=== PATIENT | female | born 1960 | race Caucasian/White ===

== ENCOUNTER → 2021-03-24 15:26 | Outpatient (CLI) | payer OTHER, SELFPAY ==
--- NOTE | ~2021-03-24 | XR_ITS ---
XR thoracic spine 2V DATE: 03/24/2021 16:00 INDICATION: Thoracic back pain TECHNIQUE: AP, lateral, swimmer views COMPARISON: None FINDINGS: There is diffuse osteopenia. There is mild dextro scoliosis of the thoracic spine. No fracture or dislocation or bone destruction. The thoracic pedicles are intact. No paraspinal soft tissue thickening. Aortic arch calcification. Bilateral pulmonary hyperinflation suggesting COPD. IMPRESSION: Diffuse osteopenia Mild thoracic dextroscoliosis Reviewed, dictated and finalized at location A.
--- NOTE | ~2021-03-24 | XR_ITS ---
XR_CERV2-3V_CR DATE: 03/24/2021 16:00 INDICATION: Neck pain TECHNIQUE: AP, open-mouth, lateral and swimmer views COMPARISON: None FINDINGS: C7 is not well demonstrated on the lateral view, resulting in C1 and C2 are normally aligned and the odontoid process is intact. There is 4 mm anterolisthesis at C4-5. There is 1 mm anterolisthesis and moderate degenerative disc disease at C5-6. There is moderately severe degenerative disc disease at C6-7. No fracture is detected. No prevertebral soft tissue swelling. IMPRESSION: Multilevel degenerative disc disease, most pronounced at C6-7 and C5-6 4 mm anterolisthesis at C4-5, 1 mm anterolisthesis at C5-6 Reviewed, dictated and finalized at Location A. Reviewed, dictated and finalized at location A. IMPRESSION: Multilevel degenerative disc disease, most pronounced at C6-7 and C 5-6 4 mm anterolisthesis at C4-5, 1 mm anterolisthesis at C5-6
--- NOTE | ~2021-03-24 | XR_ITS ---
XR lumbar spine 2-3V DATE: 03/24/2021 16:00 INDICATION: Back pain, right sacroiliac pain. TECHNIQUE: AP, lateral, coned lateral lumbosacral views COMPARISON: None FINDINGS: There is mild dextroscoliosis. There is diffuse osteopenia. No fracture or bone destruction or spondylolisthesis . The lumbar pedicles are intact. Lumbar and lumbosacral interspaces are relatively well preserved. The re is mild degenerative spurring of the lumbar spine. The sacroiliac joints are unremarkable. IMPRESSION: Diffuse osteopenia Mild dextro scoliosis Mild degenerative spurring of the lumbar spine Reviewed, dictated and finalized at location A.
--- NOTE | ~2021-03-24 | XR_ITS ---
XR pelvis 1-2V DATE: 03/24/2021 16:00 INDICATION: Right sacroiliac pain TECHNIQUE: Standing AP pelvis COMPARISON: None FINDINGS: There is diffuse osteopenia. The pubic symphysis and sacroiliac joints are intact. No pelvic fracture or bone destruction is detec tigre. Joint spaces are symmetric and relatively well preserved. No fracture or dislocation of either hip is noted. IMPRESSION: Osteopenia Reviewed, dictated and finalized at location A. IMPRESSION: Osteopenia
== END ==
PROVIDERS: PCP Internal Medicine; Visit Provider Chiropractor
DX: M85.88 Other specified disorders of bone density and structure, other site (principal); M41.9 Scoliosis, unspecified; M50.323 Other cervical disc degeneration at C6-C7 level
CPT/HCPCS: 72040; 72070; 72100; 72170

== ENCOUNTER 2024-11-30 08:45 | Emergency (ER) | payer MEDICARE, SELFPAY ==
--- NOTE | ~2024-11-30 | XR_ITS ---
EXAMINATION: XR knee RT 3V DATE: 11/30/2024 09:06 INDICATION: Right knee injury TECHNIQUE: Anteroposterior, sunrise, oblique and crosstable lateral views of the 8 knee were obtained COMPARISON: None. FINDINGS: Alignment is normal. No fracture. Joint spaces appear normal on nonweightbearing imaging with no ost eophytosis. No joint effusion/layering lipohemarthrosis. Soft tissues are unremarkable. IMPRESSION: 1. Negative right knee radiographs. Reviewed, dictated and finalized at location B.
[2024-11-30 08:45] VITALS: BP 122/74; PULSE 110; RESP 22; TEMP 36.7; O2SAT 95
--- OUTSIDE RECORDS SUMMARY | 2024-11-30 08:58 | XMS_ITS | Referral Summary ---
Author Organization [facility] Address [address] [place] [address] Care Team Providers Care Cyber Crime Investigator Name Role Phone Colt Archibald MD Primary Care Provider [phone] Ze Heard EMERGENCY PLANNING AND RESPONSE MANAGER Unavailable [phone] Allergies Active Allergy Reactions Criticality Noted Date Comments Alendronate Nausea only Low 12/09/2021 Tramadol Anaphylaxis High Medications DULoxetine DR (CYMBALTA) 60 mg capsuleIndicatio ns:Anxiety with Depression Take 60 mg by mouth every morning Active cyanocobalamin (Vitamin B-12) 1,000 mcg/mL injectionIndicat ions:Vitamin B12 Deficiency Inject 1,000 mcg into the muscle as instructed every 30 (thirty) days Active ascorbic acid (VITAMIN C) 500 mg tablet,chewable Take one tablet twice daily 60 tablet/chew tab 0 Active Additional Information Patient taking differently: 500 mg oral 2 times daily PRN, Take one tablet twice daily,Indications: supplement, Informant: Self, Reported on 09/03/2020 albuterol sulfate 90 mcg/actuation aerosol powdr breath activatedIndicat ions:Chronic Obstructive Pulmonary Disease Inhale 2 puffs every 4 (four) hours as needed Active HYDROcodone-acet aminophen (NORCO) 5-325 mg per tablet Take 1 tablet by mouth every 8 (eight) hours as needed for pain 0 Active rOPINIRole (REQUIP) 0.5 mg tabletIndication s:Restless Legs Syndrome Take 0.5 mg by mouth nightly as needed 0 Active Trelegy Ellipta 100-62.5-25 mcg inhalerIndicatio ns:Bronchospasm Prevention with COPD Inhale 1 puff every morning 0 Active ergocalciferol (VITAMIN D) 50,000 unit capsuleIndicatio ns:Vitamin D Deficiency Take 50,000 Units by mouth once a week On Wed 0 Active levothyroxine (SYNTHROID) 88 mcg tabletIndication s:hypothyroidism Take 88 mcg by mouth marinator before breakfast Active SUMAtriptan (IMITREX) 50 mg tablet Take 50 mg by mouth once as needed for migraine 0 Active calcium-magnesiu m-zinc tabletIndication s:for supplement Take 1 tablet by mouth every morning Active hydrOXYzine (ATARAX) 25 mg tablet TAKE 1 TABLET BY MOUTH TWICE A DAY NEEDED FOR ANXIETY 1 Active alendronate (FOSAMAX) 70 mg tablet TAKE 1 TABLET BY MOUTH ONE TIME PER WEEK 1 Active cyclobenzaprine (FLEXERIL) 5 mg tablet TAKE 1 TABLET BY MOUTH 3 TIMES DAILY FOR 14 DAYS. 1 Active calcium carb-mag ox-zinc sulf 333-133-5 mg tablet Take 1 tablet by mouth Active Active Problems Problem Noted Date Diagnosed Date Osteoporosis 01/15/2021 Closed fracture of right distal radius 1 Overview (09/02/2020): Added automatically from request for surgery [id number] Carpal tunnel syndrome on right 07/19/2020 Overview (07/19/2020): Added automatically from request for surgery [id number] Rotator cuff tear arthropathy of right shoulder 05/27/2020 Overview (05/27/2020): Added automatically from request for surgery [id number] Rotator cuff arthropathy of right shoulder 05/20 Carpal tunnel syndrome of right wrist 05/20/2020 Complete tear of left rotator cuff 10/02/2019 Overview (10/02/2019): Added automatically from request for surgery [id number] Impingement syndrome of left shoulder 10/02/2019 Overview (10/02/2019): Added automatically from request for surgery [id number] Biceps tendinitis of right upper extremity 10/01 Overview (10/02/2019): Added automatically from request for surgery [id number] Immunizations Immunization Administration Dates Next Due Influenza, Quadrivalent, Spl it, Preservative Free, Intramuscular 04/23/2020 Influenza, Trivalent, Preservative Free, Intramu scular 09/02/2019,05/02/2019 Moderna SARS-CoV-2 Monovalent Vaccination (12+ Y RS) 03/27/2021,02/27/2021 Pneumococcal Polysaccharide PPV23 06/06/2019 Social History Tobacco Use Types Packs/Day Years Used Date Smoking Tobacco: Former Cigarettes 1 43.8 1 976 - 06/06/2019 Smokeless Tobacco: Never Alcohol Use Standard Drinks/Week Comments Yes 2 (1 standard drink = 0.6 oz pur e alcohol) AUDIT-C Answer Date Recorded Q1: How often do you have a drink containing alc ohol? 2-3 times a week 03/03/2021 Q2: How many drinks containi ng alcohol do you have on a typical day when you are drinking? 3 or 4 03/03/2021 Q3: How often do you have si x or more drinks on one occasion? 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 Gender Identity Not on file Sexual Orientation Not on file Last Filed Vital Signs Vital Sign Reading Time Taken Comments Blood Pressure 82/59 03/06/2021 2:10 PM CDT Pulse 70 03/06/2021 2:10 PM CDT Temperature 36.5 C (97.7 F) 03/06/2021 12:43 PM CDT Respiratory Rate 14 03/06/2021 2:10 PM CDT Oxygen Saturation 95% 03/06/2021 2:10 PM CDT Inhaled Oxygen Concentration - - Weight 62.1 kg (137 lb) 05/22/2021 8:47 AM CDT Height 165.1 cm (5' 5 ) 05/22/2021 8:47 AM CDT Body Mass Index 22.8 05/22/2021 8:47 AM CDT Plan of Treatment Not on file Medical Devices Implanted Type Area Physician Support Coordinator Device Identifier Shelf Expiration Date Model / Serial / Lot Musculoskeletal Transplant [id number] 4-30mm Allograft Frozen Old45-20sz Wedge Graft Bone - [id number] - [id number] Implanted:Qty: 1 on 09/12/2020 by Jorge L Alonso MD at [facility] Bone Right: Wrist Musculoskeletal Transplant 01/16/2024 [id number] / [id number] / [employer] 70-0058 Acu-Loc Wale .054in Low Profile Wire Joystick Hole Lock - [id number] - [id number] Implanted:Qty: 1 on 03/06/2021 by Jorge L Alonso MD at [facility] Plate Right: Wrist [employer] 70-0058 / 000 / 000 [employer] Co-N2312 2.3mm 12mm Nontoggle Hexagonal Cortical Screw Bone Titanium - [id number] Implanted:Qty: 2 on 09/12/2020 by Jorge L Alonso MD at [facility] Right: Wrist [employer] CO-N2312 / / [employer] Co-T2316 2.3mm 16mm Lock Hexagonal Cortical Full Thread Screw Bone - [id number] Implanted:Qty: 2 on 09/12/2020 by Jorge L Alonso MD at [facility] Right: Wrist [employer] CO-T2316 / / [employer] 70-0335 Acu-Loc 2 Buttress Rim Radial Right Distal Dorsal Plate Bone - [id number] Implanted:Qty: 1 on 09/12/2020 by Jorge L Alonso MD at [facility] Right: Wrist [employer] 70-0335 / / [employer] Co-T2318 2.3mm 18mm Lock Hexagonal Cortical Full Thread Screw Bone - [id number] Implanted:Qty: 1 on 09/12/2020 by Jorge L Alonso MD at [facility] Right: Wrist [employer] CO-T2318 / / Biomet B[employer] In [employer] Box [employer] [id number] Lactosorb Od1.5 Mm L5 Mm Emergency; Color Coded; Resorbable; Hexa - [id number] Implanted:Qty: 1 on 09/12/2020 by Jorge L Alonso MD at [facility] Right: Wrist Obdulio [employer] 915-2316 / / [employer] Co-T2314 2.3mm 14mm Lock Hexagonal Cortical Full Thread Screw Bone - [id number] Implanted:Qty: 1 on 09/12/2020 by Jorge L Alonso MD at [facility] Right: Wrist [employer] CO-T2314 / / [employer] Co-N2316 2.3mm 16mm Nontoggle Hexagonal Cortical Screw Bone Titanium - [id number] Implanted:Qty: 1 on 09/26/2020 by Jorge L Alonso MD at [facility] Right: Wrist [employer] 09/26/2020 CO-N2316 / / [employer] 30-0258 3.5mm 14mm Hexalobe Screw Bone Titanium Nonsterile Small Fragment - [id number] Implanted:Qty: 1 on 03/06/2021 by Jorge L Alonso MD at [facility] Right: Radius [employer] 30-0258 / / [employer] Co-T2316 2.3mm 16mm Lock Hexagonal Cortical Full Thread Screw Bone - [id number] Implanted:Qty: 2 on 03/06/2021 by Jorge L Alonso MD at [facility] Right: Radius [employer] CO-T2316 / / [employer] Co-T2318 2.3mm 18mm Lock Hexagonal Cortical Full Thread Screw Bone - [id number] Implanted:Qty: 2 on 03/06/2021 by Jorge L Alonso MD at [facility] Right: Radius [employer] CO-T2318 / / [employer] [id number] 3.5mm 14mm Lock Hexalobe Screw Bone Titanium Nonsterile Small - [id number] Implanted:Qty: 1 on 03/06/2021 by Jorge L Alonso MD at [facility] Right: Radius [employer] [id number] / / [employer] [id number] 3.5mm 12mm Hexalobe Screw Bone Titanium Nonsterile Small Fragment - [id number] Implanted:Qty: 1 on 03/06/2021 by Jorge L Alonso MD at [facility] Right: Radius [employer] [id number] / / Explanted Type Area Physician Support Coordinator Device Identifier Shelf Expiration Date Model / Serial / Lot [employer] [id number] 3.5mm 12mm Hexalobe Screw Bone Titanium Nonsterile Small Fragment - [id number] Explanted:Qty: 1 on 03/06/2021 by Jorge L Alonso MD at [facility] Right: Radius [employer] [id number] / / [employer] 30-0258 3.5mm 14mm Hexalobe Screw Bone Titanium Nonsterile Small Fragment - [id number] Explanted:Qty: 1 on 03/06/2021 by Jorge L Alonso MD at [facility] Right: Radius [employer] 30-0258 / / [employer] [id number] 3.5mm 12mm Lock Hexalobe Head Screw Bone Nonsterile - [id number] Explanted:Qty: 1 on 03/06/2021 by Jorge L Alonso MD at [facility] Right: Radius [employer] [id number] / / [employer] Co-T2318 2.3mm 18mm Lock Hexagonal Cortical Full Thread Screw Bone - [id number] Explanted:Qty: 1 on 03/06/2021 by Jorge L Alonso MD at [facility] Right: Radius [employer] CO-T2318 / / Procedures Procedure Name Priority Date/Time Associated Diagnosis Comments COLONOSCOPY 04/13/2018 10:02 AM CDT from Last 3 Months or Most Recently Relevant to Health Maintenance Results * COLONOSCOPY (04/13/2018 10:02 AM CDT) Anatomical Region Laterality Modality Other Narrative Procedure Note Rosemary Guaman MD - 04/13/2018 10:02 AM CDT [facility] Patient Name: Kae Goodwin Procedure Date: 04/13/2018 10:02 AM Date of : 1960 Admit Type: Outpatient Age: 58 Gender: Female Attending MD: Rosemary Guaman MD Room: [facility] ENDOSCOPY ROOM 2 Note Status: Finalized Patient Profile: 58 WF, screening, no family h/o colon cancer, had episdoe of rectal pain that seems resolved now. Procedure: Colonoscopy Indications: Screening for colorectal malignant neoplasm, Last colonoscopy: 1999 Referring MD: Colt Archibald MD Providers: Rosemary Guaman MD Impression: - One 2 mm polyp in the ascending colon, removedwith a jumbo cold forceps. Resected and retrieved. - Internal hemorrhoids. Recommendation: - Await pathology results. - Repeat colonoscopy in 5 years for surveillance. Medicines: Monitored Anesthesia Care Complications: No immediate complications. Estimated Blood Loss: Estimated blood loss: none. Procedure: Pre-Anesthesia Assessment: - Prior to the procedure, a History and Physical was performed, and patient medications and allergieswere reviewed. The patient's tolerance of previous anesthesia was also reviewed. The risks and benefitsof the procedure and the sedation options and riskswere discussed with the patient. All questions were answered, and informed consent was obtained. Prior Anticoagulants: The patient has taken no previous anticoagulant or antiplatelet agents. ASA Grade Assessment: II - A patient with mild systemicdisease. After reviewing the risks and benefits, the patientwas deemed in satisfactory condition to undergo the procedure. The benefits, risks and alternatives of theprocedure and sedation were discussed and informed consent was obtained. All questions were answered. Please referto the signed informed consent document in the medical record. The scope was passed under direct vision.The Pediatric Colonoscope PCF-H190L [id number] was introduced through the anus and advanced to the the cecum, identified by appendiceal orifice andileocecal valve. The colonoscopy was performed without difficulty. The patient tolerated the procedurewell. The quality of the bowel preparation was adequate. Findings: The perianal and digital rectal examinations were normal. The cecum appeared normal. A 2 mm polyp was found in the ascending colon. The polyp was sessile. The polyp was removed with a jumbo cold forceps. Resection andretrieval were complete. Internal hemorrhoids were found during retroflexion. The hemorrhoids were small to medium-sized. Electronically signed by Rosemary Guaman M.D. Rosemary Guaman MD 04/13/2018 11:34:45 AM Number of Addenda: 0 Note Initiated On: 04/13/2018 10:02 AM Procedure Code(s): --- Professional --- 91749, Colonoscopy, flexible; with biopsy, single or multiple Diagnosis Code(s): --- Professional --- Z12.11, Encounter for screening for malignant neoplasm of colon K64.8, Other hemorrhoids D12.2, Benign neoplasm of ascending colon CPT copyright 2017 [employer]. All rights reserved. The codes documented in this report are preliminary and upon handicraft or hobby shop manager reviewmay be revised to meet current compliance requirements. Recognized by the [employer] for promoting quality in endoscopy Rosemary Guaman MD ENDOSCOPY PROCEDURES Final Result from Last 3 Months or Most Recently Relevant to Health Maintenance Insurance [facility] CHOICE PLUS CHOICE PLUS MEDICARE MEDICARE Advance Directives For more information, please contact: [phone] * Full Code (Latest Code Status on File) Date Activated Date Inactivated Comments 04/13/2018 9:12 AM 04/13/2018 2:14 PM Care Teams Cyber Crime Investigator Relationship Specialty Start Date End Date Colt Archibald MD [address] [place] [address] PCP - General 06/01/13 Ze Heard NP [address] [place] [address] [place] [address] Nurse Practitioner Nurse Practitioner 10/12/19
--- OUTSIDE RECORDS SUMMARY | 2024-11-30 08:58 | XMS_ITS | Encounter Summary ---
Author Organization [facility] Address [address] [place] [address] Phone Care Team Providers Care Center Rep Name Role Phone Colt Archibald MD Primary Care Provider [phone] Ze Heard COUNTER CLERK [employer] Unavailable [phone] Encounter Details Date Type Department Care Team (Latest Contact Info) Description 08/30/2020 Orders Only SHE[facility]ER [facility] HAND/WRIST Scanning, Provider Social History Tobacco Use Types Packs/Day Years Used Date Smoking Tobacco: Former Cigarettes Q uit: 06/06/2019 Smokeless Tobacco: Never Alcohol Use Standard Drinks/Week Comments Yes 2 (1 standard drink = 0.6 oz pur e alcohol) Socially Comments No Sex and Gender Information Value Date Recorded Sex Assigned at Not on file 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 Gender Identity Not on file Sexual Orientation Not on file documented as of this encounter Plan of Treatment Not on file documented as of this encounter Procedures Procedure Name Priority Date/Time Associated Diagnosis Comments SCAN - RADIOLOGY/IMAGING 08/30/2020 documented in this encounter Results * SCAN - RADIOLOGY/IMAGING (08/30/2020) Anatomical Region Laterality Modality Other us Provider Scanning Final Result documented in this encounter Visit Diagnoses Not on filedocumented in this encounter Care Teams Center Rep Relationship Specialty Start Date End Date Colt Archibald MD [address] [place] [address] PCP - General 06/01/13 Ze Heard NP [address] [place] [address] [address] [place] [address] Nurse Practitioner Nurse Practitioner 10/12/19 documented as of this encounter
--- OUTSIDE RECORDS SUMMARY | 2024-11-30 08:58 | XMS_ITS | Clinical Summary ---
Author Organization [facility] Address [address] [place] [address] Care Team Providers Care Truck Despatcher Name Role Phone Unavailable Primary Care Provider Unavailabl e Source Comments [facility],non-owned Affiliates and Associated Physician Practices is amultiple site organization consisting of ambulatory clinics and hospital sitesin [place], [place], [place] and [place]. This disclosure is being madepursuant to the Care Everywhere program and may not contain all information available regarding this patient. Last updated 18.[facility] Allergies Active Allergy Reactions Criticality Noted Date Comments Tramadol 09/05/2013 Medications * Be aware that medications may not be up to date on this document. Alwaysverify current medications with the patient. levothyroxine (TIROSINT) 125 MCG capsule Take 125 mcg by mouth daily before breakfast. Active hydrOXYzine hcl (ATARAX) 10 MG tablet Take 10 mg by mouth 4 times daily as needed. Active sertraline (ZOLOFT) 50 MG tablet Take 50 mg by mouth once daily. Active Calcium Carbonate Antacid (TUMS PO) Take by mouth. Activ e meloxicam (MOBIC) 15 MG tabletIndicati ons:Back pain Take 0.5-1 Tabs by mouth once daily. 4 Active acetaminophen (TYLENOL) 500 MG tabletIndicati ons:Back pain,Migraine Take 2 Tabs by mouth 3 times daily. Maximum allowable Acetaminophen amount = 4 Grams (4000 mg) / 24 hours. 4 Active Cholecalcifero l (VITAMIN D) 1000 UNITS capsuleIndicat ions:Cramp in limb Take 2 Caps by mouth once daily. 4 Active Magnesium Oxide 200 MG TABSIndication s:Cramp in limb Take 200 mg by mouth 2 times daily after meals. 60 Tab 6 4 Active Additional Information Patient not taking.Reported on 07/09/2015 hydrocodone-ac etaminophen (NORCO) 5-325 MG tablet Take 1 Tab by mouth every 4 hours as needed for Pain. Active gabapentin (NEURONTIN) 100 MG capsuleIndicat ions:Insomnia Take 1-2 Caps by mouth at bedtime. 60 Cap 6 4 Active Additional Information Patient not taking.Reported on 07/09/2015 traMADol (ULTRAM) 50 MG tabletIndicati ons:Fibromyalg ia Take 0.5-1 Tabs by mouth 3 times daily as needed for Pain. with over the counter Tylenol for daily pain 90 Tab 6 4 Active Additional Information Patient not taking.Reported on 07/09/2015 amitriptyline (ELAVIL) 25 MG tablet Take 25 mg by mouth once daily 5 5 Active pantoprazole EC (PROTONIX) 40 MG tablet Take 40 mg by mouth once daily Active NIFEdipine CR osmotic 24hr (PROCARDIA-XL) 30 MG tablet Take 30 mg by mouth once daily Active multivitamin daily (THERAGRAN) tablet Take 1 Tab by mouth daily with food Active cyanocobalamin (VITAMIN B-12) injection Inject 1,000 mcg into muscle every 30 days Active cyclobenzaprin e (FLEXERIL) 10 MG tablet 0 5 Active Active Problems Problem Noted Date Diagnosed Date Arm pain 09/17/2013 Overview (09/17/2013): Normal shoulder xray Mild multilevel DJD on Cspine Abdominal pain, RUQ (right upper quadrant) 09/17 Overview (09/17/2013): 09/17/2013 normal US abd Family History Medical History Relation Name Comments Arthritis - Osteo Father Hypertension Father Stroke Father Hypertension Mother Stroke Mother Arthritis - Osteo Sister 1 Migraine Sister 2 Relation Name Status Comments Brother drug use Father Mother (Age 35) CVA Sister 1 Sister 2 Social History Tobacco Use Types Packs/Day Years Used Date Smoking Tobacco: Some Days Cigarettes Smokeless Tobacco: Never Comments:E cig vapor & cigs Alcohol Use Standard Drinks/Week Comments Yes 0 (1 standard drink = 0.6 oz pur e alcohol) occ Comments Unknown Sex and Gender Information Value Date Recorded Sex Assigned at Not on file Legal Sex Female 1:10 PM REFUGE WORKER Gender Identity Not on file Sexual Orientation Not on file 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 Not on file Not on file Not on arnoldo e Last Filed Vital Signs Vital Sign Reading Time Taken Comments Blood Pressure 110/68 07/09/2015 11:00 AM REFUGE WORKER Pulse 84 06/18/2014 3:47 PM REFUGE WORKER Temperature - - Respiratory Rate - - Oxygen Saturation - - Inhaled Oxygen Concentration - - Weight 65.8 kg (145 lb) 07/09/2015 11:00 AM REFUGE WORKER Height 165.1 cm (5' 5 ) 07/09/2015 11:00 AM REFUGE WORKER Body Mass Index 24.13 07/09/2015 11:00 AM REFUGE WORKER Plan of Treatment Health Maintenance Due Date Last Done Comments COLOGUARD (AGES 45-75) - COL ON CA SCREENING 1960 COLON MONITORING 1960 COLONOSCOPY - COLON CA SCREENING 1960 CT COLONOGRAPHY - COLON CA SCREENING 1960 Colorectal Cancer Screening 1960 FIT - COLON CA SCREENING 1960 FLEX SIG - COLON CA SCREENING 1960 LIPID TESTING 1960 MAMMOGRAM 1960 HIV SCREENING 01/22/1975 HEPATITIS C SCREENING 01/18/1978 DTAP/TDAP/TD VACCINES (1 - Tdap) 01/22/1979 PNEUMOCOCCAL VACCINE 50+ (1 of 2 - PCV) 01/22/1979 ZOSTER VACCINE (1 of 2) 01/22/2010 COVID-19 VACCINE ( - 2023-2 5 season) 2024 DEPRESSION SCREENING 08/02/2024 INFLUENZA VACCINE (Season Ended) 2025 Respiratory Syncytial Virus (RSV) Vaccine Pt: or over 60 yrs (1 - 1-dose 75+ series) 01/22/2035 HEPATITIS B VACCINE Aged Out No longe r eligible based on patient's age to complete this topic HIB VACCINE Aged Out No longer eligi ble based on patient's age to complete this topic HPV VACCINE Aged Out No longer eligi ble based on patient's age to complete this topic MENINGOCOCCAL (Group B) VACC INE SHARED DECISION-MAKING Aged Out No longer eligibl e based on patient's age to complete this topic MENINGOCOCCAL GROUPS A/C/Y/W VACCINE Aged Out No longer eligible b ased on patient's age to complete this topic Insurance [facility]
--- OUTSIDE RECORDS SUMMARY | 2024-11-30 08:59 | XMS_ITS | Clinical Summary ---
Author Organization [facility] Address [address] [place] [address] Phone Care Team Providers Care Raisin Separator Operator Name Role Phone Colt Archibald MD Primary Care Provider [phone] Jase Mchugh MD Unavailable [phone] Allergies Active Allergy Reactions Criticality Noted Date Comments Alendronate Nausea 12/09/2021 Tramadol Swelling 02/09/2018 Medications calcium carbonate (TUMS) 250 MG Chewable Tablet Take by mouth. Activ e acetaminophen (TYLENOL) 500 MG Tablet Take by mouth. 4 Active Ascorbic Acid (Vitamin C) 500 MG Chewable Tablet Take one tablet twice daily 0 Active Cholecalcifero l (D 1000) 25 mcg Capsule Take by mouth. 4 Active Magnesium 200 MG Tablet 200 mg daily Active zinc gluconate 50 MG Tablet Take by mouth. Ac tive hydrOXYzine (ATARAX) 25 MG Tablet TAKE 1 TABLET BY MOUTH TWICE A DAY NEEDED FOR ANXIETY 30 Tablet 2 1 Active calcium-magnes ium-zinc 333-133-5 MG Tablet Take 1 Tablet by mouth. Active ergocalciferol (VITAMIN D) 60949 UNIT Capsule TAKE 1 CAPSULE BY MOUTH ONCE A WEEK. DOSE CHANGE 4 Capsule 5 1 Active cyanocobalamin (VITAMIN B-12) 1000 MCG/ML Solution 1,000 mcg by Intramuscular route Every 3 months. Active rOPINIRole (REQUIP) 0.5 MG Tablet Take 1 Tablet by mouth nightly. 90 Tablet 1 2 Active SUMAtriptan (IMITREX) 50 MG Tablet Take 1 tab at onset of headache.May repeat dose in 2 hours if headache persist. 9 Tablet 3 2 Active rosuvastatin (CRESTOR) 10 MG Tablet Take 1 Tablet by mouth nightly. 30 Tablet 3 3 Active busPIRone (BUSPAR) 5 MG Tablet Take 1 1/2 tab po bid prn for anxiety 42 Tablet 3 Active cyclobenzaprin e (FLEXERIL) 5 MG Tablet Take 1 Tablet by mouth every 6 hours as needed for Muscle spasms. 56 Tablet 1 3 Active levothyroxine (SYNTHROID) 100 MCG Tablet Take 1 Tablet by mouth daily. 90 Tablet 3 3 Active DULoxetine (CYMBALTA) [address] Particles Take 1 Capsule by mouth daily. 30 Capsule 2 3 Active tiotropium-olo daterol (STIOLTO RESPIMAT) 2.5-2.5 MCG/ACT Aerosol Solution take 2 Puffs by inhalation daily. 4 g 2 3 Active albuterol 108 (90 Base) MCG/ACT Aerosol Solution take 1-2 Puffs by inhalation every 4 hours as needed for Wheezing. 18 g 2 3 Active omeprazole (PriLOSEC) 20 MG CAPSULE DELAYED RELEASE Take 1 Capsule by mouth daily. 30 Capsule 3 3 Active Active Problems Problem Noted Date Diagnosed Date GERD without esophagitis 12/31/2022 Centrilobular emphysema 12/31/2022 Other hyperlipidemia 06/30/2022 Chronic pain of both shoulders 08/05/2021 Chronic pain of right wrist 08/05/2021 Osteoporosis 01/15/2021 Migraine without aura and wi thout status migrainosus, not intractable 10/24/2020 Generalized anxiety disorder 08/15/2020 Restless leg syndrome 08/15/2020 Fibromyalgia 05/22/2020 Vitamin B12 deficiency 04/23/2020 Chronic bilateral low back pain with right-sided sciatica 06/04/2019 Other specified hypothyroidism 06/04/2019 Lateral epicondylitis, left elbow 02/10/2018 Resolved Problems Problem Noted Date Diagnosed Date Resolved Date Panlobular emphysema 05/22/2020 023 Community acquired pneumonia 06/04/2019 08/15/2020 COPD exacerbation 06/04/2019 05/22/2020 Immunizations Immunization Administration Dates Next Due Covid-19, Mrna, Lnp-s, PF, 1 00 mcg/0.5 mL Dose (Moderna) 03/27/2021,02/27/2021 Influenza Vaccine 09/02/2019,05/02/2019 Influenza Vaccine, MDCK,quad rivalent, pres free 04/14/2023 Influenza Vaccine, Quadrivalent, PF 04/27/2022,0 08/05/2021,04/23/2020 Pneumococcal Vaccine Adult - 23 Valent 9 Pneumococcal conjugate PCV20 , polysaccharide [id number] conjugate, adjuvant, PF 03/04/2022 Zoster Vaccine Recombinant 01/28/2022 Family History Medical History Relation Name Comments Stroke Mother Relation Name Status Comments Brother Alive Father Mother Sister 1 Alive Sister 2 Alive Social History Tobacco Use Types Packs/Day Years Used Date Smoking Tobacco: Former Cigarettes Q uit: 06/23/2019 Smokeless Tobacco: Never Alcohol Use Standard Drinks/Week Comments Yes 2 (1 standard drink = 0.6 oz pur e alcohol) occasionally PHQ-2 Answer Date Recorded Total Score - Questions 1-9 0 04/03 Sexually Active Control Partners Comments Yes Comments No Sex and Gender Information Value Date Recorded Sex Assigned at Not on file Legal Sex Female 10:11 PM CDT Gender Identity Not on file Sexual Orientation Not on file Last Filed Vital Signs Vital Sign Reading Time Taken Comments Blood Pressure 110/72 09/17/2022 2:53 PM CAR SALES CONSULTANT Pulse 94 09/17/2022 2:53 PM CAR SALES CONSULTANT Temperature 36.4 C (97.6 F) 09/17/2022 2:53 PM CAR SALES CONSULTANT Respiratory Rate 16 04/27/2022 2:39 PM CDT Oxygen Saturation 97% 09/17/2022 2:53 PM CAR SALES CONSULTANT Inhaled Oxygen Concentration - - Weight 60.3 kg (133 lb) 09/17/2022 2:53 PM CAR SALES CONSULTANT Height 165.1 cm (5' 5 ) 09/17/2022 2:53 PM CAR SALES CONSULTANT Body Mass Index 22.13 09/17/2022 2:53 PM CAR SALES CONSULTANT Plan of Treatment Health Maintenance Due Date Last Done Comments Hepatitis C Virus (HCV) Screening 1960 TdaP Immunization 1960 Cologuard 01/22/2010 Immunochemical Fecal Occult Blood 01/22/2010 Respiratory Syncytial Virus (RSV) Immunization (Adult) (1 - Risk 60-74 years 1-dose series) 2020 Mammogram 02/26/2023 02/26/2022, 12/31, 02/20/2016 Influenza Immunization (#1) 04/02/202404/02, 04/27/2022, 08/05/2021, Additional history exists SARS-COV-2 Immunization ( season) 2024 03/27/2021, 02/27/2021 Colonoscopy 04/13/2028 04/13/2018 Colorectal Cancer Screening 04/13/2028 04/13/2018 Pneumococcal Immunization (50+ years) Completed 03/04/2022, 06/06/2019 Pneumococcal Immunization Combined Discontinued 03/04/2022, 06/06/2019 Zoster Immunization Completed 05/04/2022, Hepatitis B Immunization Aged Out No longer eligible based on patient's age to complete this topic Meningococcal Immunization (ACWY) Aged Out No longer eligible based on patient's age to complete this topic Rotavirus Immunization Aged Out No lo nger eligible based on patient's age to complete this topic Procedures Procedure Name Priority Date/Time Associated Diagnosis Comments IAN DIAG BILATERAL DIGITAL W CAD W ALINA Routine 02/26/2022 12:00 AM CDT Abnormal mammogram HM COLONOSCOPY Routine 04/13/2018 from Last 3 Months or Most Recently Relevant to Health Maintenance Results * IAN DIAG BILATERAL DIGITAL W CAD W ALINA (02/26/2022 12:00 AM CDT) Anatomical Region Laterality Modality breast Bilateral Mammography 02/26/2022 us Colt Archibald MD IMG MAMMO ORDERABLES Final Result * HM COLONOSCOPY (04/13/2018) us Colt Archibald MD PROCEDURE/MINOR SURGICAL OR DERABLES Final Result from Last 3 Months or Most Recently Relevant to Health Maintenance Insurance MEDICARE Advance Directives * Full Code (Latest Code Status on File) Date Activated Date Inactivated Comments 06/04/2019 2:33 PM 06/06/2019 5:49 PM CPR-Full Jong atment: FULL ARREST: Attempt Resuscitation/CPR wit intubation and mechanical ventilation. PRE-ARREST: Use entire range of life support measures to stabilize the patient. Care Teams Raisin Separator Operator Relationship Specialty Start Date End Date Colt Archibald MD [address] [place] [address] PCP - General Internal Medicine 06/14/15 Jase Mchugh MD [address] [place] [address] General Surgery 07/11/15
--- OUTSIDE RECORDS SUMMARY | 2024-11-30 08:59 | XMS_ITS | Continuity of Care Document ---
Author Organization [facility] Address [address] [place] [address] Phone Care Team Providers Care Aeronautical Inspector Name Role Phone Administrative, Provider Unavailable Unavail able Procedures Procedure Date Medical Record Copy Medical Record Copy Per Page Affidavit Medical Record Copy Medical Record Copy Per Page Affidavit Office/outpatient visit,est, mod 2005 Supplemental Report X-ray exam of shoulder, complete 2005 Advance Directives Directive Yes / No Effective Date File Name No Information Encounters Encounter Description Practice Location Reason(s) For Visit Diagnoses Date Provider Providers Copied on Encounter [facility], [address], [id number], [place] tel:[phone] [facility] No Information 7 Administrative Provider. [address], [place], [id number], [place]. tel:[phone] [facility], [address] [place] [address], [id number], [place] tel:[phone] [facility] No Information 3200 7 Administrative Provider. [address] [facility], [place], [id number], [place]. tel:[phone] Office/outpa tient visit,est, mod [facility], [address] [facility] [address], [place], [place], [id number], [place] tel:[phone] [facility] No Information 6[address] 6 Abigail Waldrop. [address] [facility], [address], [place], [place], [id number], [place]. tel:[phone] Family History Family Member Type Diagnosis Age At Onset No Information Payers Payer name Insurance type Covered democrat ID Authoriza tion(s) No Information Social History Type Description Quantity Date Captured Comments Sex Female Smoking Status No Information Chief Complaint And Reason For Visit No Information Reason For Referral Reason For Referral No Information History Of Present Illness Encounter Date Complaint History Of Prese nt Illness No Information Functional Status Date Functional Assessmen t No Information Instructions Date Instruction Additional Infor mation No Information Assessments Type Assessment Date No Information Patient Care Teams Name Effective Dates (start - stop) Status Members No Information
--- OUTSIDE RECORDS SUMMARY | 2024-11-30 08:59 | XMS_ITS | Clinical Summary ---
Author Organization [facility] Address [address] [place] [address] Care Team Providers Care Real Estate Coordinator Name Role Phone Colt Archibald MD Primary Care Provider [phone] eZ Heard ORNAMENT MAKER HAND Unavailable [phone] Allergies Active Allergy Reactions Criticality Noted Date [...] tabletIndication s:hypothyroidism Take 88 mcg by mouth electric power line repairer before breakfast Active SUMAtriptan (IMITREX) 50 mg [...] (09/02/2020): Added automatically from request for surgery [id number] Carpal tunnel syndrome on right 07/19/2020 Overview (07/19/2020): Added automatically from request for surgery [id number] Rotator cuff tear arthropathy of right shoulder 05/27/2020 Overview (05/27/2020): Added automatically from request for surgery [id number] Rotator cuff arthropathy of right shoulder 05/20 Carpal tunnel syndrome of right wrist 05/20/2020 Complete tear of left rotator cuff 10/02/2019 Overview (10/02/2019): Added automatically from request for surgery [id number] Impingement syndrome of left shoulder 10/02/2019 Overview (10/02/2019): Added automatically from request for surgery [id number] Biceps tendinitis of right upper extremity 10/01 Overview (10/02/2019): Added automatically from request for surgery [id number] Immunizations Immunization Administration Dates Next Due Influenza, Quadrivalent, Spl it, Preservative Free, Intramuscular 04/23/2020 Influenza, Trivalent, Preservative Free, Intramu scular 09/02/2019,05/02/2019 Moderna SARS-CoV-2 Monovalent Vaccination (12+ Y RS) 03/27/2021,02/27/2021 Pneumococcal Polysaccharide PPV23 06/06/2019 Surgical History Surgery Date Site/Laterality Comments SHOULDER SURGERY , 2002 Bilateral bilateral shoulder surgery COLONOSCOPY 18+ years ago does not remember location HYSTERECTOMY 08/02/1996 - 08/01/1997 SHOULDER SURGERY 08/02/2002 - 08/01/2003 CARPAL TUNNEL RELEASE 08/01/2020 Right TONSILLECTOMY 08/02/1965 - 08/01/1966 Medical History Medical History Date Comments Hx Other Medical chronic fatigue ; improved 10/06/2019 Headache headaches; impro reji 10/06/2019 Hx Other Medical shingles Hx Other Medical Headache, migra ine Anxiety disorder Anxiety; improv ed 10/06/2019 Depression Depression Hx Other Medical back pain Hx Other Medical 2005 right shouler Hx Other Medical 2010 right shoulder surgery Hx Other Medical 2011 left shoulder s urgery Hx Other Medical 2011 2 hernia disk i n neck Disorder of thyroid Thyroid dise ase COPD (chronic obstructive pu lmonary disease) (HCC) Requires supplemental oxygen At night 2.5L/NC Hypothyroidism On home oxygen therapy 2.5L at s lee Family History Medical History Relation Name Comments Heart disease Other 1 Family history of Heart disease; Seizures Other 2 Family history of Seizure disorder; Stroke Other 3 Family history of Stroke; Anesthesia problems Neg Hx Relation Name Status Comments Other 1 Other 2 Other 3 Social History Tobacco Use Types Packs/Day Years [...] on file Legal Sex Female 6:11 PM CLINICAL EDUCATOR Gender Identity Not on file Sexual Orientation Not on file Obstetrics History Last Filed Vital Signs Vital Sign Reading [...] 05/22/2021 8:47 AM CDT Plan of Treatment Health Maintenance Due Date Last Done Comments Depression Screening 1960 Hepatitis C Screening 1960 DTaP/Tdap/Td Vaccine (1 - Tdap) 01/22/1971 Hepatitis B Screening 01/22/1978 Regular Well Visit/Exam 18-64 01/22/1978 Zoster Vaccine (1 of 2) 01/22/2010 Breast Cancer Screening-Mammogram 01/13/2022 01/13/2021 Covid-19 Vaccine ( season) 2024 03/27/2021, 02/27/2021 Influenza Vaccine (#1) 2024 2, 04/23/2020, 09/02/2019, Additional history exists Colon Cancer Screening-Colonoscopy 04/13/2028 04/13/2018 Colon Cancer Screening-CT Colonography Discontinued 04/13/2018 Colon Cancer Screening-DNA Stool Discontinued 04/13/2018 Colon Cancer Screening-FIT Discontinued 04/13/2018 Colon Cancer Screening-Sigmoidoscopy Discontinued 04/13/2018 Pneumococcal vaccine <65 Aged Out 06/06/2019 No longer eligible based on patient's age to complete this topic Medical Devices Implanted Type Area Animal Services Officer Device Identifier Shelf Expiration Date Model / Serial / Lot Musculoskeletal Transplant [id number] 4-30mm Allograft Frozen [id number] Wedge Graft Bone - [id number] - [id number] Implanted:Qty: 1 on 09/12/2020 by Jorge L Alonso MD at [facility] Bone Right: Wrist Musculoskeletal Transplant 01/16/2024 [id number] / [id number] / [employer] 70-0058 Acu-Loc Wale .054in Low Profile Wire Joystick Hole Lock - [id number] - [id number] Implanted:Qty: 1 on 03/06/2021 by Jorge L Alonso MD at [facility] Plate Right: Wrist [employer] 70-0058 / 000 / 000 [employer] Co-N2312 2.3mm 12mm Nontoggle Hexagonal Cortical Screw Bone Titanium - [id number] Implanted:Qty: 2 on 09/12/2020 by Jorge L Alonso MD at [facility] Right: Wrist [employer] CO-N2312 / / [employer] Co-T2316 2.3mm 16mm Lock Hexagonal Cortical Full Thread Screw Bone - [id number] Implanted:Qty: 2 on 09/12/2020 by Jorge L Alonso MD at [facility] Right: Wrist [employer] CO-T2316 / / [employer] 70-0335 Acu-Loc 2 Buttress Rim Radial Right Distal Dorsal Plate Bone - [id number] Implanted:Qty: 1 on 09/12/2020 by Jorge L Alonso MD at [facility] Right: Wrist [employer] 70-0335 / / [employer] Co-T2318 2.3mm 18mm Lock Hexagonal Cortical Full Thread Screw Bone - [id number] Implanted:Qty: 1 on 09/12/2020 by Jorge L Alonso MD at [facility] Right: Wrist [employer] CO-T2318 / / Biomet [employer] [id number] Lactosorb Od1.5 Mm L5 Mm Emergency; Color Coded; Resorbable; Hexa - [id number] Implanted:Qty: 1 on 09/12/2020 by Jorge L Alonso MD at [facility] Right: Wrist Obdulio [employer] 915-2316 / / [employer] Co-T2314 2.3mm 14mm Lock Hexagonal Cortical Full Thread Screw Bone - [id number] Implanted:Qty: 1 on 09/12/2020 by Jorge L Alonso MD at [facility] Right: Wrist [employer] CO-T2314 / / [employer] Co-N2316 2.3mm 16mm Nontoggle Hexagonal Cortical Screw Bone Titanium - [id number] Implanted:Qty: 1 on 09/26/2020 by Jorge L Alonso MD at [facility] Right: Wrist [employer] 09/26/2020 CO-N2316 / / [employer] 30-0258 3.5mm 14mm Hexalobe Screw Bone Titanium Nonsterile Small Fragment - [id number] Implanted:Qty: 1 on 03/06/2021 by Jorge L Alonso MD at [facility] Right: Radius [employer] 30-0258 / / [employer] Co-T2316 2.3mm 16mm Lock Hexagonal Cortical Full Thread Screw Bone - [id number] Implanted:Qty: 2 on 03/06/2021 by Jorge L Alonso MD at [facility] Right: Radius [employer] CO-T2316 / / [employer] Co-T2318 2.3mm 18mm Lock Hexagonal Cortical Full Thread Screw Bone - [id number] Implanted:Qty: 2 on 03/06/2021 by Jorge L Alonso MD at [facility] Right: Radius [employer] CO-T2318 / / [employer] [id number] 3.5mm 14mm Lock Hexalobe Screw Bone Titanium Nonsterile Small - [id number] Implanted:Qty: 1 on 03/06/2021 by Jorge L Alonso MD at [facility] Right: Radius [employer] [id number] / / [employer] [id number] 3.5mm 12mm Hexalobe Screw Bone Titanium Nonsterile Small Fragment - [id number] Implanted:Qty: 1 on 03/06/2021 by Jorge L Alonso MD at [facility] Right: Radius [employer] [id number] / / Explanted Type Area Animal Services Officer Device Identifier Shelf Expiration Date Model / Serial / Lot [employer] Inc [id number] 3.5mm 12mm Hexalobe Screw Bone Titanium Nonsterile Small Fragment - [id number] Explanted:Qty: 1 on 03/06/2021 by Jorge L Alonso MD at [facility] Right: Radius [employer] [id number] / / [employer] 30-0258 3.5mm 14mm Hexalobe Screw Bone Titanium Nonsterile Small Fragment - [id number] Explanted:Qty: 1 on 03/06/2021 by Jorge L Alonso MD at [facility] Right: Radius [employer] 30-0258 / / [employer] 073231 3.5mm 12mm Lock Hexalobe Head Screw Bone Nonsterile - [id number] Explanted:Qty: 1 on 03/06/2021 by Jorge L Alonso MD at [facility] Right: Radius [employer] [id number] / / [employer] Co-T2318 2.3mm 18mm Lock Hexagonal Cortical Full Thread Screw Bone - [id number] Explanted:Qty: 1 on 03/06/2021 by Jorge L Alonso MD at [facility] Right: Radius [employer] CO-T2318 / / Procedures Procedure Name Priority Date/Time Associated Diagnosis Comments COLONOSCOPY 04/13/2018 10:02 AM CDT from Last 3 Months or Most Recently Relevant to Health Maintenance Results * COLONOSCOPY (04/13/2018 10:02 AM CDT) Anatomical Region Laterality Modality Other Narrative Procedure Note Rosemary Guaman MD - 04/13/2018 10:02 AM CDT [facility] Patient Name: Kae Goodwin Procedure Date: 04/13/2018 10:02 AM Date of : 1960 Admit Type: Outpatient Age: 58 Gender: Female Attending MD: Rosemary Guaman MD Room: COUNTS INCLUDE 234 BEDS AT THE [facility] ENDOSCOPY ROOM 2 Note Status: Finalized Patient [...] passed under direct vision.The Pediatric Colonoscope PCF-H190L [id number] was introduced through the anus and advanced [...] 10:02 AM Procedure Code(s): --- Professional --- 47543, Colonoscopy, flexible; with biopsy, single or multiple Diagnosis Code(s): --- Professional --- Z12.11, Encounter for screening for malignant neoplasm of colon K64.8, Other hemorrhoids D12.2, Benign neoplasm of ascending colon CPT copyright 2017 [employer]. All rights reserved. The codes documented in this report are preliminary and upon carton marker machine reviewmay be revised to meet current compliance requirements. Recognized by the [employer] for promoting quality in endoscopy Rosemary Guaman MD ENDOSCOPY PROCEDURES Final Result from Last 3 Months or Most Recently Relevant to Health Maintenance Insurance [facility] [employer] HMO/PPO Address: [address] [address] [place] [id number] [facility] H[facility]/PPO Address: [address] [place] [address] MEDICARE MEDICARE Advance Directives For more information, please contact: [phone] * Full Code (Latest Code Status on File) Date Activated Date Inactivated Comments 04/13/2018 9:12 AM 04/13/2018 2:14 PM Care Teams Real Estate Coordinator Relationship Specialty Start Date End Date Colt Archibald MD [address] [place] [address] PCP - General 06/01/13 Ze Heard NP [address] [place] [address] [address] MALLORY [address] [place] [address] [address] Nurse Practitioner Nurse Practitioner 10/12/19
--- OUTSIDE RECORDS SUMMARY | 2024-11-30 08:59 | XMS_ITS | Encounter Summary ---
Author Organization [facility] Address [address] [place] [address] Phone Care Team Providers Care Java Application Developer Name Role Phone Colt Archibald MD Primary Care Provider Jase Mchugh MD Unavailable [phone] Reason for Visit * Reason Comments Medication Refill Encounter Details Date Type Department Care Team (Late st Contact Info) Description 08/17/2020 Refill [facility] - Internal Medicine - [place] [address] [place] [address] Colt Archibald MD [address] [place] [address] Medication Refill Social History Tobacco Use Types Packs/Day Years Used Date Smoking Tobacco: Former Cigarettes Q uit: 06/23/2019 Smokeless Tobacco: Never Alcohol Use Standard Drinks/Week Comments Yes 2 (1 standard drink = 0.6 oz pur e alcohol) occasionally PHQ-2 Answer Date Recorded Total Score - Questions 1-9 1 04/03 Comments No Sex and Gender Information Value Date Recorded Sex Assigned at Not on file Legal Sex Female 10:11 PM CDT Gender Identity Not on file Sexual Orientation Not on file COVID-19 Exposure Response Date Recorded In the last month, have you been in contact with someone who was confirmed or suspected to have Coronavirus / COVID-19? No / Unsure 08/15/2020 3:39 PM ASSISTANCE REPRESENTATIVE documented as of this encounter Miscellaneous Notes * Telephone Encounter - Elenita Arambula RN - 08/19/2020 8:07 AM CST Please review and sign. STANCE REPRESENTATIVE documented in this encounter Plan of Treatment Not on file documented as of this encounter Visit Diagnoses Not on filedocumented in this encounter Additional Health Concerns Assessment Noted Time PHQ-9 Depression Total Score: 1 04/23/20 20 3:00 PM CDT documented as of this encounter Care Teams Java Application Developer Relationship Specialty Start Date End Date Colt Archibald MD [address] [place] [address] PCP - General Internal Medicine 06/14/15 Jase Mchugh MD [address] [place] [address] General Surgery 07/11/15 documented as of this encounter
--- OUTSIDE RECORDS SUMMARY | 2024-11-30 08:59 | XMS_ITS | Encounter Summary ---
Author Organization [facility] Address [address] [place] [address] Care Team Providers Care Vending Technician Name Role Phone Colt Archibald MD Primary Care Provider [phone] Ze Heard BALL WORKER Unavailable [phone] Encounter Details Date Type Department Care Team (Late st Contact Info) Description 05/14/2020 Telephone [facility] [address] [place] [id number] Vanessa Gardner, Social History Tobacco Use Types Packs/Day Years Used Date Smoking Tobacco: Former Cigarettes Q uit: 06/06/2019 Smokeless Tobacco: Never Alcohol Use Standard Drinks/Week Comments Yes 0 (1 standard drink = 0.6 oz pur e alcohol) Socially Comments No Sex and Gender Information Value Date Recorded Sex Assigned at Not on file Legal Sex Female 6:11 PM CARDIOVASCULAR DISEASE SPECIALIST Gender Identity Not on file Sexual Orientation Not on file documented as of this encounter Plan of Treatment Not on file documented as of this encounter Visit Diagnoses Not on filedocumented in this encounter Care Teams Vending Technician Relationship Specialty Start Date End Date Colt Archibald MD [address] [place] [address] PCP - General 06/01/13 Ze Heard NP [address] [place] [address] [facility] [address] [place] [address] Nurse Practitioner Nurse Practitioner 10/12/19 documented as of this encounter
--- OUTSIDE RECORDS SUMMARY | 2024-11-30 08:59 | XMS_ITS | Encounter Summary ---
Author Organization [facility] Address [address] [place] [address] Phone Care Team Providers Care Aerospace Mechanic Name Role Phone Colt Archibald MD Primary Care Provider Jase Mchugh MD Unavailable [phone] Reason for Visit * Reason Comments Medication Refill Encounter Details Date Type Department Care Team (Late st Contact Info) Description 11/02/2020 Refill [facility] - Internal Medicine - [place] [address] [place] [address] Colt Archibald MD [address] [place] [address] Medication Refill Social History Tobacco Use Types Packs/Day Years Used Date Smoking Tobacco: Former Cigarettes Q uit: 06/23/2019 Smokeless Tobacco: Never Alcohol Use Standard Drinks/Week Comments Yes 2 (1 standard drink = 0.6 oz pur e alcohol) occasionally PHQ-2 Answer Date Recorded Total Score - Questions 1-9 1 04/03 Sexually Active Control Partners Comments Yes [...] have Coronavirus / COVID-19? No / Unsure 10/24/2020 2:31 PM CDT documented as of this encounter Plan of Treatment Not on file documented as of this encounter Visit Diagnoses Not on filedocumented in this encounter Additional Health Concerns Assessment Noted Time PHQ-9 Depression Total Score: 1 04/23/20 20 3:00 PM CDT documented as of this encounter Care Teams Aerospace Mechanic Relationship Specialty Start Date End Date Colt Archibald MD [address] [place] [address] PCP - General Internal Medicine 06/14/15 Jase Mchugh MD [address] [place] [address] General Surgery 07/11/15 documented as of this encounter
[2024-11-30 09:00] VITALS: BP 107/76; PULSE 107; RESP 17; O2SAT 95
--- NOTE | 2024-11-30 09:11 | ED.LOWEXIN ---
HPI - Extremity Injury (Lower) General Chief Complaint: Extremity Injury, Lower Stated Complaint: fall; right knee pain Time Seen by Provider: 11/30/24 08:55 Source: patient Mode of arrival: wheelchair Limitations: physical limitation History of Present Illness HPI Narrative: this is a 64-year-old female with history of COPD presents with some right knee pain after she fell yesterday injuring her right knee, there is pain located at the anterior surface of her right knee with minimal swelling with tenderness with palpation and movement. No other injuries noted no fever chills no nausea vomiting no shortness of breath no chest pain. complaint: knee injury Onset (ago): day(s) Injury: Right: knee ( tender with palpation and movement) Type of Injury: blunt Place: home Severity: moderate Severity scale (1-10): 6 Relieving factors: nothing Exacerbating factors: movement Context: fall Related Data Allergies Allergy/AdvReac Type Severity Reaction Status Date / Time tramadol Allergy Unknown TONGUE Verified 11/30/24 08:55 SWELLING Review of Systems Review of Systems: All systems reviewed & are unremarkable except as noted in HPI and below PMFSH Past Medical History Medical History COPD (chronic obstructive pulmonary disease) Exam Const: General: healthy appearing, no acute distress and alert Nutritional Appearance: well nourished and thin Limitations: no limitations Neck: Neck: normal visual inspection and no lymphadenopathy Chest: Chest palpation & inspection: normal inspection of the chest Resp: Effort & Inspection: normal respiratory effort Auscultation: clear to auscultation bilaterally Cardio: Rate: regular rate Rhythm: regular rhythm GI: GI Palp: Yes Soft to palpation Auscultation: normal bowel sounds Skin: General skin exam: normal color Rashes: no rashes Wounds: no wounds Neuro: General: patient oriented x3, moves all extremities, no meningeal signs and no focal motor deficits Extrem: Other: tender anterior right knee with palpation and movement Course Course Emergency Course: patient with right knee injury x-ray performed reviewed. Patient received 30mg IM Toradol. Critical Care Time Critical Care Time Critical Care Time: No Discharge Plan Discharge Clinical Impression: Strain of knee and leg, right Patient Disposition: Home Condition: Stable Instructions: Antibiotic Form, Knee Sprain (ED) Additional Instructions: advised to take Tylenol Motrin as needed and follow with primary care physician if symptoms persist or worsen. Patient Language: [place] Islander Follow-up/Referrals: Melva,Juan Mcqueen MD [Primary Care Provider] - Time of Disposition: 10:01
[2024-11-30] MEDS: KETOROLAC 30 MG/ML VIAL (*BKC) IM (09:15)
[2024-11-30 09:30] VITALS: BP 135/68; PULSE 99; RESP 17; O2SAT 96
--- OUTSIDE RECORDS SUMMARY | 2024-11-30 09:36 | XMS_ITS | Referral Summary ---
Author Organization [facility] Address [address] [place] [address] Care Team Providers Care Review Trainer Name Role Phone Colt Archibald MD Primary Care Provider [phone] Ze Heard SILVERWARE ASSEMBLER Unavailable [phone] Allergies Active Allergy Reactions Criticality Noted Date [...] tabletIndication s:hypothyroidism Take 88 mcg by mouth college counselor before breakfast Active SUMAtriptan (IMITREX) 50 mg [...] (09/02/2020): Added automatically from request for surgery [id number] Carpal tunnel syndrome on right 07/19/2020 Overview (07/19/2020): Added automatically from request for surgery [id number] Rotator cuff tear arthropathy of right shoulder 05/27/2020 Overview (05/27/2020): Added automatically from request for surgery [id number] Rotator cuff arthropathy of right shoulder 05/20 Carpal tunnel syndrome of right wrist 05/20/2020 Complete tear of left rotator cuff 10/02/2019 Overview (10/02/2019): Added automatically from request for surgery [id number] Impingement syndrome of left shoulder 10/02/2019 Overview (10/02/2019): Added automatically from request for surgery [id number] Biceps tendinitis of right upper extremity 10/01 Overview (10/02/2019): Added automatically from request for surgery [id number] Immunizations Immunization Administration Dates Next Due Influenza, [...] on file Legal Sex Female 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 Gender Identity Not on file Sexual [...] on file Medical Devices Implanted Type Area Tipple Boss Device Identifier Shelf Expiration Date Model / Serial / Lot Musculoskeletal Transplant [id number] 4-30mm Allograft Frozen [id number] Wedge Graft Bone - [id number] - [id number] Implanted:Qty: 1 on 09/12/2020 by Jorge L Alonso MD at [facility] Bone Right: Wrist Musculoskeletal Transplant 01/16/2024 [id number] / [id number] / [employer] 70-0058 Acu-Loc Wale .054in Low Profile Wire Joystick Hole Lock - S000 - [id number] Implanted:Qty: 1 on 03/06/2021 by Jorge L Alonso MD at [facility] Plate Right: Wrist [employer] 70-0058 / 000 / 000 [employer] Co-N2312 2.3mm 12mm Nontoggle Hexagonal Cortical Screw Bone Titanium - [id number] Implanted:Qty: 2 on 09/12/2020 by Jorge L Alonso MD at [facility] Right: Wrist [employer] CO-N2312 / / [employer] Co-T2316 2.3mm 16mm Lock Hexagonal Cortical Full Thread Screw Bone - [id number] Implanted:Qty: 2 on 09/12/2020 by Jorge L Alonso MD at [facility] Right: Wrist [employer] CO-T2316 / / [employer] 70-0335 Acu-Loc 2 Buttress Rim Radial Right Distal Dorsal Plate Bone - [id number] Implanted:Qty: 1 on 09/12/2020 by Jroge L Alonso MD at [facility] Right: Wrist [employer] 70-0335 / / [employer] Co-T2318 2.3mm 18mm Lock Hexagonal Cortical Full Thread Screw Bone - [id number] Implanted:Qty: 1 on 09/12/2020 by Jorge L Alonso MD at [facility] Right: Wrist [employer] CO-T2318 / / Biomet psicofxpixation Inc [id number] Lactosorb Od1.5 Mm L5 Mm Emergency; Color Coded; Resorbable; Hexa - [id number] Implanted:Qty: 1 on 09/12/2020 by Jorge L Alonso MD at [facility] Right: Wrist Obdulio [employer] 915-2316 / / [employer] Co-T2314 2.3mm 14mm Lock Hexagonal Cortical Full Thread Screw Bone - [id number] Implanted:Qty: 1 on 09/12/2020 by Jorge L Alonso MD at [facility] Right: Wrist [employer] CO-T2314 / / [employer] Co-N2316 2.3mm 16mm Nontoggle Hexagonal Cortical Screw Bone Titanium - [id number] Implanted:Qty: 1 on 09/26/2020 by Jorge L Alonso MD at [facility] Right: Wrist [employer] 09/26/2020 CO-N2316 / / [employer] 30-0258 3.5mm 14mm Hexalobe Screw Bone Titanium Nonsterile Small Fragment - [id number] Implanted:Qty: 1 on 03/06/2021 by Jorge L Alonso MD at [facility] Right: Radius [employer] 30-0258 / / [employer] Co-T2316 2.3mm 16mm Lock Hexagonal Cortical Full Thread Screw Bone - [id number] Implanted:Qty: 2 on 03/06/2021 by Jorge L Alonso MD at [facility] Right: Radius [employer] CO-T2316 / / [employer] Co-T2318 2.3mm 18mm Lock Hexagonal Cortical Full Thread Screw Bone - [id number] Implanted:Qty: 2 on 03/06/2021 by Jorge L Alonso MD at [facility] Right: Radius [employer] CO-T2318 / / [employer] [id number] 3.5mm 14mm Lock Hexalobe Screw Bone Titanium Nonsterile Small - [id number] Implanted:Qty: 1 on 03/06/2021 by Jorge L Alonso MD at [facility] Right: Radius [employer] [id number] / / [employer] [id number] 3.5mm 12mm Hexalobe Screw Bone Titanium Nonsterile Small Fragment - [id number] Implanted:Qty: 1 on 03/06/2021 by Jorge L Alonso MD at [facility] Right: Radius [employer] [id number] / / Explanted Type Area Tipple Boss Device Identifier Shelf Expiration Date Model / Serial / Lot [employer] Inc [id number] 3.5mm 12mm Hexalobe Screw Bone Titanium Nonsterile Small Fragment - [id number] Explanted:Qty: 1 on 03/06/2021 by Jorge L Alonso MD at [facility] Right: Radius [employer] [id number] / / [employer] 30-0258 3.5mm 14mm Hexalobe Screw Bone Titanium Nonsterile Small Fragment - [id number] Explanted:Qty: 1 on 03/06/2021 by Jorge L Alonso MD at [facility] Right: Radius [employer] 30-0258 / / [employer] [id number] 3.5mm 12mm Lock Hexalobe Head Screw Bone Nonsterile - [id number] Explanted:Qty: 1 on 03/06/2021 by Jorge L Alonso MD at [facility] Right: Radius [employer] [id number] / / [employer] Co-T2318 2.3mm 18mm Lock Hexagonal Cortical Full Thread Screw Bone - [id number] Explanted:Qty: 1 on 03/06/2021 by oJrge L Alonso MD at [facility] Right: Radius [employer] CO-T2318 / / Procedures Procedure Name Priority Date/Time Associated Diagnosis Comments COLONOSCOPY 04/13/2018 10:02 AM CDT from Last 3 Months or Most Recently Relevant to Health Maintenance Results * COLONOSCOPY (04/13/2018 10:02 AM CDT) Anatomical Region Laterality Modality Other Narrative Procedure Note Rosemary Guaman MD - 04/13/2018 10:02 AM CDT [facility] Patient Name: Kae Goodwin Procedure Date: 04/13/2018 10:02 AM Date of : 1960 Admit Type: Outpatient Age: 58 Gender: Female Attending MD: Rosemary Guaman MD Room: [facility] ENDOSCOPY ROOM 2 Note Status: Finalized [...] passed under direct vision.The Pediatric Colonoscope PCF-H190L [id number] was introduced through the anus and advanced [...] 10:02 AM Procedure Code(s): --- Professional --- 76087, Colonoscopy, flexible; with biopsy, single or multiple Diagnosis Code(s): --- Professional --- Z12.11, Encounter for screening for malignant neoplasm of colon K64.8, Other hemorrhoids D12.2, Benign neoplasm of ascending colon CPT copyright 2017 [employer]. All rights reserved. The codes documented in this report are preliminary and upon learning and development director reviewmay be revised to meet current compliance requirements. Recognized by the [place] [employer] for promoting quality in endoscopy Rosemary Guaman MD ENDOSCOPY PROCEDURES Final Result from Last 3 Months or Most Recently Relevant to Health Maintenance Insurance [facility] HMO/PPO Address: [address] [place] [address] [facility] H[facility]/PPO Address: [address] [place] [address] MEDICARE MEDICARE Advance Directives For more information, please contact: [phone] * Full Code (Latest Code Status on File) Date Activated Date Inactivated Comments 04/13/2018 9:12 AM 04/13/2018 2:14 PM Care Teams Review Trainer Relationship Specialty Start Date End Date Colt Archibald MD [address] [place] [address] PCP - General 06/01/13 Ze Heard NP [address] [place] [address] [place] [address] Nurse Practitioner Nurse Practitioner 10/12/19
--- OUTSIDE RECORDS SUMMARY | 2024-11-30 09:36 | XMS_ITS | Encounter Summary ---
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
--- OUTSIDE RECORDS SUMMARY | 2024-11-30 09:37 | XMS_ITS | Encounter Summary ---
Author Organization [facility] Address [address] [place] [address] Phone Care Team Providers Care Rn Medicare Name Role Phone Colt Archibald MD Primary Care Provider [phone] Jase Mchugh MD Unavailable [phone] Reason for Visit * Reason Comments Medication Refill Encounter Details Date Type Department Care Team (Late st Contact Info) Description 11/02/2020 Refill [facility] - Internal Medicine - [place] [address] [place] [address] Colt Archibald MD [address] [place] [address] Medication Refill Social History Tobacco [...] documented as of this encounter Care Teams Rn Medicare Relationship Specialty Start Date End Date Colt Archibald MD [address] [place] [address] PCP - General Internal Medicine 06/14/15 Jase Mchugh MD [address] [place] [address] General Surgery 07/11/15 documented as of this encounter
--- OUTSIDE RECORDS SUMMARY | 2024-11-30 09:37 | XMS_ITS | Clinical Summary ---
Author Organization [facility] Address [address] [place] [address] Phone Care Team Providers Care Sugar Refinery Supervisor Name Role Phone Colt Archibald MD Primary Care Provider Jase Mchugh MD Unavailable [phone] Allergies Active Allergy Reactions Criticality Noted [...] Tablet by mouth. Active ergocalciferol (VITAMIN D) 12249 UNIT Capsule TAKE 1 CAPSULE BY MOUTH [...] Valent 9 Pneumococcal conjugate PCV20 , polysaccharide [id number] conjugate, adjuvant, PF 03/04/2022 Zoster Vaccine Recombinant [...] Comments Blood Pressure 110/72 09/17/2022 2:53 PM TANK COOPER Pulse 94 09/17/2022 2:53 PM TANK COOPER Temperature 36.4 C (97.6 F) 09/17/2022 2:53 PM TANK COOPER Respiratory Rate 16 04/27/2022 2:39 PM CDT Oxygen Saturation 97% 09/17/2022 2:53 PM TANK COOPER Inhaled Oxygen Concentration - - Weight 60.3 kg (133 lb) 09/17/2022 2:53 PM TANK COOPER Height 165.1 cm (5' 5 ) 09/17/2022 2:53 PM TANK COOPER Body Mass Index 22.13 09/17/2022 2:53 PM TANK COOPER Plan of Treatment Health Maintenance Due Date [...] Recently Relevant to Health Maintenance Insurance MEDICARE [employer] [place] [id number] Advance Directives * Full Code (Latest Code Status on File) Date Activated Date Inactivated Comments 06/04/2019 2:33 PM 06/06/2019 5:49 PM CPR-Full Jong atment: FULL ARREST: Attempt Resuscitation/CPR wit intubation and mechanical ventilation. PRE-ARREST: Use entire range of life support measures to stabilize the patient. Care Teams Sugar Refinery Supervisor Relationship Specialty Start Date End Date Colt Archibald MD [address] [place] [address] PCP - General Internal Medicine 06/14/15 Jase Mchugh MD [address] [place] [address] General Surgery 07/11/15
--- OUTSIDE RECORDS SUMMARY | 2024-11-30 09:37 | XMS_ITS | Clinical Summary ---
Author Organization [facility] Address [address] [facility] [place] [address] Care Team Providers Care Peoplesoft Financials Name Role Phone Unavailable Primary Care Provider Unavailabl e Source Comments [facility],non-owned Affiliates and Associated Physician Practices is amultiple site organization consisting of ambulatory clinics and hospital sitesin [place], [place], [place] and [place]. This disclosure is being madepursuant to the Care Everywhere program and may not contain all information available regarding this patient. 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 Not on file Not on arnoldo e Last Filed Vital Signs Vital Sign Reading Time Taken Comments Blood Pressure 110/68 07/09/2015 11:00 AM REPAIRER CYLINDER HEADS Pulse 84 06/18/2014 3:47 PM REPAIRER CYLINDER HEADS Temperature - - Respiratory Rate - - Oxygen Saturation - - Inhaled Oxygen Concentration - - Weight 65.8 kg (145 lb) 07/09/2015 11:00 AM REPAIRER CYLINDER HEADS Height 165.1 cm (5' 5 ) 07/09/2015 11:00 AM REPAIRER CYLINDER HEADS Body Mass Index 24.13 07/09/2015 11:00 AM REPAIRER CYLINDER HEADS Plan of Treatment Health Maintenance Due Date [...] patient's age to complete this topic Insurance [facility] Address: [facility] [id number] [place] [address]
--- OUTSIDE RECORDS SUMMARY | 2024-11-30 09:37 | XMS_ITS | Clinical Summary ---
Author Organization [facility] Address [address] [place] [address] Care Team Providers Care Carbon Brusher Assembler Name Role Phone Colt Archibald MD Primary Care Provider [phone] Ze Heard CHILD AND ADOLESCENT THERAPIST Unavailable [phone] Allergies Active Allergy Reactions Criticality Noted Date [...] tabletIndication s:hypothyroidism Take 88 mcg by mouth fruit express agent before breakfast Active SUMAtriptan (IMITREX) 50 mg [...] (09/02/2020): Added automatically from request for surgery [id number] Carpal tunnel syndrome on right 07/19/2020 Overview (07/19/2020): Added automatically from request for surgery [id number] Rotator cuff tear arthropathy of right shoulder 05/27/2020 Overview (05/27/2020): Added automatically from request for surgery [id number] Rotator cuff arthropathy of right shoulder 05/20 Carpal tunnel syndrome of right wrist 05/20/2020 Complete tear of left rotator cuff 10/02/2019 Overview (10/02/2019): Added automatically from request for surgery [id number] Impingement syndrome of left shoulder 10/02/2019 Overview (10/02/2019): Added automatically from request for surgery [id number] Biceps tendinitis of right upper extremity 10/01 Overview (10/02/2019): Added automatically from request for surgery [id number] Immunizations Immunization Administration Dates Next Due Influenza, [...] on file 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 Gender Identity Not on file Sexual [...] this topic Medical Devices Implanted Type Area Automobile Service Advisor Device Identifier Shelf Expiration Date Model / Serial / Lot Musculoskeletal Transplant [id number] 4-30mm Allograft Frozen [id number] Wedge Graft Bone - [id number] - [id number] Implanted:Qty: 1 on 09/12/2020 by Jorge L Alonso MD at [facility] Bone Right: Wrist Musculoskeletal Transplant 01/16/2024 [id number] / [id number] / [employer] 70-0058 Acu-Loc Wale .054in Low Profile Wire Joystick Hole Lock - S000 - [id number] Implanted:Qty: 1 on 03/06/2021 by Jorge L Alonso MD at [facility] Plate Right: Wrist [employer] 70-0058 / 000 / 000 [employer] Inc Co-N2312 2.3mm 12mm Nontoggle Hexagonal Cortical Screw Bone Titanium - [id number] Implanted:Qty: 2 on 09/12/2020 by Jorge L Alonso MD at [facility] Right: Wrist [employer] CO-N2312 / / [employer] Co-T2316 2.3mm 16mm Lock Hexagonal Cortical Full Thread Screw Bone - [id number] Implanted:Qty: 2 on 09/12/2020 by Jorge L Alonso MD at [facility] Right: Wrist [employer] CO-T2316 / / [employer] 70-0335 Acu-Loc 2 Buttress Rim Radial Right Distal Dorsal Plate Bone - [id number] Implanted:Qty: 1 on 09/12/2020 by Jorge L Alonso MD at [facility] Right: Wrist [employer] 70-0335 / / [employer] Co-T2318 2.3mm 18mm Lock Hexagonal Cortical Full Thread Screw Bone - [id number] Implanted:Qty: 1 on 09/12/2020 by Jorge L Alonso MD at [facility] Right: Wrist [employer] CO-T2318 / / Biomet Micro[employer]ation Inc 914-0434 Lactosorb Od1.5 Mm L5 Mm Emergency; Color Coded; Resorbable; Hexa - [id number] Implanted:Qty: 1 on 09/12/2020 by Jorge L Alonso MD at [facility] Right: Wrist Obdulio [employer] Inc 915-2316 / / [employer] Co-T2314 2.3mm 14mm Lock Hexagonal Cortical Full Thread Screw Bone - [id number] Implanted:Qty: 1 on 09/12/2020 by Joreg L Alonso MD at [facility] Right: Wrist [employer] CO-T2314 / / [employer] Co-N2316 2.3mm 16mm Nontoggle Hexagonal Cortical Screw Bone Titanium - [id number] Implanted:Qty: 1 on 09/26/2020 by Jorge L Alonso MD at [facility] Right: Wrist [employer] 09/26/2020 CO-N2316 / / [employer] 30-0258 3.5mm 14mm Hexalobe Screw Bone Titanium Nonsterile Small Fragment - [id number] Implanted:Qty: 1 on 03/06/2021 by Jorge L Alonso MD at [facility] Right: Radius [employer] 30-0258 / / [employer] Co-T2316 2.3mm 16mm Lock Hexagonal Cortical Full Thread Screw Bone - [id number] Implanted:Qty: 2 on 03/06/2021 by Jorge L Alonso MD at [facility] Right: Radius [employer] CO-T2316 / / [employer] Co-T2318 2.3mm 18mm Lock Hexagonal Cortical Full Thread Screw Bone - [id number] Implanted:Qty: 2 on 03/06/2021 by Jorge L Alonso MD at [facility] Right: Radius [employer] CO-T2318 / / [employer] Inc [id number] 3.5mm 14mm Lock Hexalobe Screw Bone Titanium Nonsterile Small - [id number] Implanted:Qty: 1 on 03/06/2021 by Jorge L Alonso MD at [facility] Right: Radius [employer] Inc [id number] / / [employer] Inc 626396 3.5mm 12mm Hexalobe Screw Bone Titanium Nonsterile Small Fragment - [id number] Implanted:Qty: 1 on 03/06/2021 by Jorge L Alonso MD at [facility] Right: Radius [employer] Inc [id number] / / Explanted Type Area Automobile Service Advisor Device Identifier Shelf Expiration Date Model / Serial / Lot Acumed Inc 653759 3.5mm 12mm Hexalobe Screw Bone Titanium Nonsterile Small Fragment - [id number] Explanted:Qty: 1 on 03/06/2021 by Jorge L Alonso MD at [facility] Right: Radius [employer] [id number] / / [employer] 30-0258 3.5mm 14mm Hexalobe Screw Bone Titanium Nonsterile Small Fragment - [id number] Explanted:Qty: 1 on 03/06/2021 by Jorge L Alonso MD at [facility] Right: Radius [employer] 30-0258 / / [employer] Inc 909093 3.5mm 12mm Lock Hexalobe Head Screw Bone Nonsterile - [id number] Explanted:Qty: 1 on 03/06/2021 by Jorge L Alonso MD at [facility] Right: Radius [employer] Inc [id number] / / [employer] Co-T2318 2.3mm 18mm Lock Hexagonal Cortical Full Thread Screw Bone - [id number] Explanted:Qty: 1 on 03/06/2021 by Jorge L Alonso MD at [facility] Right: Radius [employer] CO-T2318 / / Procedures Procedure Name Priority Date/Time Associated Diagnosis Comments COLONOSCOPY 04/13/2018 10:02 AM CDT from Last 3 Months or Most Recently Relevant to Health Maintenance Results * COLONOSCOPY (04/13/2018 10:02 AM CDT) Anatomical Region Laterality Modality Other Narrative Procedure Note Rosemary Guaman MD - 04/13/2018 10:[address] [facility] Patient Name: Kae Goodwin Procedure Date: 04/13/2018 10:02 AM Date of : 1960 Admit Type: Outpatient Age: 58 Gender: Female Attending MD: Rosemary Guaman MD Room: [facility] ENDOSCOPY ROOM 2 Note Status: Finalized [...] passed under direct vision.The Pediatric Colonoscope PCF-H190L [id number] was introduced through the anus and advanced [...] 10:02 AM Procedure Code(s): --- Professional --- 81542, Colonoscopy, flexible; with biopsy, single or multiple Diagnosis Code(s): --- Professional --- Z12.11, Encounter for screening for malignant neoplasm of colon K64.8, Other hemorrhoids D12.2, Benign neoplasm of ascending colon CPT copyright 2017 [employer]. All rights reserved. The codes documented in this report are preliminary and upon him coder reviewmay be revised to meet current compliance requirements. Recognized by the [employer] for promoting quality in endoscopy Rosemary Guaman MD ENDOSCOPY PROCEDURES Final Result from Last 3 Months or Most Recently Relevant to Health Maintenance Insurance [facility] CHOICE PLUS [place] [id number] CHOICE PLUS MEDICARE MEDICARE Advance Directives For more information, please contact: [phone] * Full Code (Latest Code Status on File) Date Activated Date Inactivated Comments 04/13/2018 9:12 AM 04/13/2018 2:14 PM Care Teams Carbon Brusher Assembler Relationship Specialty Start Date End Date Colt Archibald MD [address] [place] [address] PCP - General 06/01/13 Ze Heard NP [address] [place] [address] [address] M[address]ORY [address] [place], [place] [address], [place] [address] Nurse Practitioner Nurse Practitioner 10/12/19
--- OUTSIDE RECORDS SUMMARY | 2024-11-30 09:37 | XMS_ITS | Encounter Summary ---
Author Organization [facility] Address [address] [place] [address] Care Team Providers Care Analysis Or Research Safety Inspector Name Role Phone Colt Archibald MD Primary Care Provider [phone] Ze Heard COMPLIANCE TESTER Unavailable [phone] Encounter Details Date Type Department Care Team (Late st Contact Info) Description 05/14/2020 Telephone [facility] [address] [place] [id number] Vanessa Gardner, Social History Tobacco Use Types Packs/Day Years Used Date Smoking Tobacco: Former Cigarettes Q uit: 06/06/2019 Smokeless Tobacco: Never Alcohol Use Standard Drinks/Week Comments Yes 0 (1 standard drink = 0.6 oz pur e alcohol) Socially Comments No Sex and Gender Information Value Date Recorded Sex Assigned at Not on file 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
--- OUTSIDE RECORDS SUMMARY | 2024-11-30 09:37 | XMS_ITS | Encounter Summary ---
Author Organization [facility] Address [address] [place] [address] Phone Care Team Providers Care Still Operator Batch Or Continuous Name Role Phone Colt Archibald MD Primary Care Provider Jase Mchugh MD Unavailable [phone] Reason for Visit * Reason Comments Medication Refill Encounter Details Date Type Department Care Team (Late st Contact Info) Description 08/17/2020 Refill [facility] - Internal Medicine - [place] [address] [place] [address] Colt Archibald MD [address] [place] [address] Medication Refill Social History [...] COVID-19? 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 SFILL TECHNICIAN documented in this encounter Plan of Treatment Not on file documented as of this encounter Visit Diagnoses Not on filedocumented in this encounter Additional Health Concerns Assessment Noted Time PHQ-9 Depression Total Score: 1 04/23/20 20 3:00 PM CDT documented as of this encounter Care Teams Still Operator Batch Or Continuous Relationship Specialty Start Date End Date Colt Archibald MD [address] [place] [address] PCP - General Internal Medicine 06/14/15 Jase Mchugh MD [address] [place] [address] General Surgery 07/11/15 documented as of this encounter
--- OUTSIDE RECORDS SUMMARY | 2024-11-30 09:37 | XMS_ITS | Clinical Summary ---
Author Organization [facility] Address [facility] [place] [address] Care Team Providers Care Strategic Marketing Leader Name Role Phone Juan Frye MD Primary Care Provider [phone] Allergies Active Allergy Reactions Criticality Noted Date Comments Tramadol Anaphylaxis,Swelling High 09/05/2013 Medications SPIRIVA RESPIMAT 2.5 MCG/ACT inhaler (SPIRIVA RESPIMAT) Inhale 2 puffs into the lungs as needed. COPD 05/30/2024 Active levothyroxine (SYNTHROID) 150 MCG tablet Take 1 tablet (150 mcg total) by mouth daily. 04/20/2024 Active DULoxetine (CYMBALTA) 30 MG capsule Take 1 capsule (30 mg total) by mouth daily. 02/04/2024 Active Albuterol Sulfate 108 (90 Base) MCG/ACT AEROSOL POWDER, BREATH ACTIVATED Inhale 2 puffs into the lungs as needed. COPD Active Multiple Vitamin (MULTIVITAMIN ADULT OR) Take 1 tablet by mouth daily. Active Calcium Carbonate (TUMS 500 OR) Take 250 mg by mouth as needed. Active Cyanocobalamin (VITAMIN B 12 OR) Take 2 tablets by mouth daily. energy Active HYDROcodone-jordon taminophen (NORCO) 7.5-325 MG tabletIndicatio ns:Acute Pain < 7 Day Supply Take 1 tablet by mouth every 4 (four) hours as needed for Pain. Indications: Acute Pain < 7 Day Supply 30 tablet 07/20/2024 Active Active Problems No known active problems Social History Tobacco Use Types Packs/Day Years Used Date Smoking Tobacco: Every Day Cigarettes Smokeless Tobacco: Never Tobacco Cessation:Ready to Q uit: Not Asked; Counseling Given: Not Answered Alcohol Use Standard Drinks/Week Comments Yes 0 (1 standard drink = 0.6 oz pur e alcohol) socially Comments No Sex and Gender Information Value Date Recorded Sex Assigned at Not on file Legal Sex Female 8:50 AM CDT Gender Identity Not on file Sexual Orientation Not on file Last Filed Vital Signs Vital Sign Reading Time Taken Comments Blood Pressure 125/80 07/20/2024 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 Pulse 73 07/20/2024 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 Temperature 36.7 C (98.1 F) 07/20/2024 9:45 AM GRADE SCHOOL TEACHER Respiratory Rate 16 07/20/2024 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 Oxygen Saturation 93% 07/20/2024 2:0 0 PM GRADE SCHOOL TEACHER encouraged to cough and deep breathe, able, no complaints, reports ready to go home, denies SOB Inhaled Oxygen Concentration - - Weight 55.8 kg (123 lb 0.3 oz) 07/20/2024 9:08 AM GRADE SCHOOL TEACHER Height 165.1 cm (5' 5 ) 07/17/2024 1:55 PM GRADE SCHOOL TEACHER Body Mass Index 20.47 07/17/2024 1:55 PM GRADE SCHOOL TEACHER Plan of Treatment Health Maintenance Due Date Last Done Comments Colorectal Cancer Screening Colonoscopy (10 Years) 1960 Annual Physical 01/22/1963 Hepatitis C 01/22/1978 DTaP, Tdap and Td Vaccines (1 - Tdap) 01/22/1979 RSV Immunization or 60+ Years (1 - Risk 60-74 years 1-dose series) 2020 Mammogram Screening 02/27/2024 02/26/2022, 02/04/2021, 01/13/2021, Additional history exists COVID-19 Vaccine ( season) 2024 03/27/2021, 02/27/2021 Pneumococcal Vaccine: 50+ Years Completed 03/04/2022, 06/06/2019 Zoster Vaccines Completed 05/04/2022, 01/28/2022 Meningococcal B Vaccine Aged Out No l onger eligible based on patient's age to complete this topic Meningococcal Vaccine Aged Out No vira dru eligible based on patient's age to complete this topic RSV Immunizations Under 20 Months Aged Out No longer eligible based on patient's age to complete this topic Medical Devices Implanted Type Area Motor Installer Device Identifier Shelf Expiration Date Model / Serial / Lot Hardware In R Wrist Half Upper Partial Mesh From Hysterectomy 3.5mm Locking Screws, Self Tapping, With Stardrive Recess Implanted:Qty: 1 on 07/20/2024 by Washington Vera MD at [facility] Right: Wrist 212.103 / / 3.5mm Locking Screws, Self Tapping, With Stardrive Recess Implanted:Qty: 1 on 07/20/2024 by Washington Vera MD at [facility] Right: Wrist 212.105 / / Drill Bits, Quick Coupling Implanted:Qty: 1 on 07/20/2024 by Washington Vera MD at [facility] Right: Wrist 310.288 / / 3.5mm Lcp Plates Implanted:Qty: 1 on 07/20/2024 by Washington Vera MD at [facility] Right: Wrist 223.561 / / 3.5mm Cortex Screws, Self Tapping Implanted:Qty: 3 on 07/20/2024 by Washington Vera MD at [facility] Right: Wrist 204.814 / / 3.5mm Cortex Screws, Self Tapping Implanted:Qty: 1 on 07/20/2024 by Washington Vera MD at [facility] Right: Wrist 204.816 / / Explanted Type Area Motor Installer Device Identifier Shelf Expiration Date Model / Serial / Lot 14mm Screw Explanted:Qty: 1 on 07/20/2024 by Washington Vera MD at [facility] Right: Wrist 16mm Screw Explanted:Qty: 1 on 07/20/2024 by Washington Vera MD at [facility] Right: Wrist Drill Bits, Quick Coupling Explanted:Qty: 1 on 07/20/2024 by Washington Vera MD at [facility] Right: Wrist 310.25 / / Insurance MEDICARE [facility] Care Teams Strategic Marketing Leader Relationship Specialty Start Date End Date Juan Frye MD [address] [place] [id number] PCP - General FAMILY PRACTICE 02/11/23
--- OUTSIDE RECORDS SUMMARY | 2024-11-30 09:37 | XMS_ITS | Continuity of Care Document ---
Author Organization [facility] Address [address] [place] [address] Phone Care Team Providers Care Terminal Worker Name Role Phone Administrative, Provider Unavailable Unavail [...] Date Provider Providers Copied on Encounter [facility] [employer] [facility], [address], [id number], [place] tel:[phone] Orthopedic [employer]fing No Information 7 Administrative Provider. [address] [facility], [address], [place], [id number], [place]. tel:[phone] [employer] [facility], [address] [place] [address], [id number], [place] tel:[phone] [employer] No Information 3200 7 Administrative Provider. [address] [facility], [facility] [address], [place], [id number], [place]. tel:[phone] Office/outpa tient visit,est, mod [facility], [address] [facility], [place], [place], [id number], [place] tel:[phone] [facility] No Information 6[address] Abigail Waldrop. [address] [facility], [address], [place], [place], [id number], [place]. tel:[phone] Family History Family Member Type Diagnosis Age At Onset No Information Payers Payer name Insurance type Covered republican ID Authoriza tion(s) No Information Social History [...]
[2024-11-30 10:06] VITALS: BP 135/83; PULSE 96; RESP 17; O2SAT 96
== END 2024-11-30 10:06 | disposition home or self-care (01) ==
PROVIDERS: Emergency Provider Emergency Medicine; PCP Emergency Medicine
DX: S86.911A Strain of unspecified muscle(s) and tendon(s) at lower leg level, right leg, initial encounter (principal); J44.9 Chronic obstructive pulmonary disease, unspecified; W19.XXXA Unspecified fall, initial encounter
CPT/HCPCS: 73562; 96372; 99283; J1885